=== PATIENT | female | born 1960 | race Caucasian/White ===

== ENCOUNTER → 2019-02-11 | Day surgery (SDC) | payer OTHER ==
[~2019-02-11] MED LIST: ALPRAZOLAM0.25 MG PO; BASAGLAR K100 UNIT/1 SQ; EPHEDRINE SULFATE INJ 50 MG/10 ML SYR ONE; FENTANYL CITRATE/PF 100MCG/2 ML INJ ONE; ISOSORBIDE MONO30 MG PO; LIDOCAINE HCL 2% LOCAL INJ 5 ML SDV VIAL INJ ONE; METOPROLOL TART25 MG PO; PANTOPRAZOLE SO40 MG PO; PIOGLITAZONE HC45 MG PO; PROPOFOL IV EMULSION 10 MG/ML 20 ML VIAL ONE; TOPIRAMATE25 MG PO; ULTRAM50 MG PO
--- OUTSIDE RECORDS SUMMARY | 2019-02-11 09:46 | XMS REPORT | Summary of Care ---
Author Author FERCHO Henriquez, JAZMÍN Organization Unknown Address Unknown Phone Unavailable Care Team Providers Care Career Portals Teacher Name Role Phone JAZMÍN BRANTLEY M.D. 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 * Start : 02-Jun-2017 Active Basaglar KwikPen 100 UNIT/ML Subcutaneous Solution Pen-injector INJECT SUBCUTANEOUSLY DIRECTED. * Refills: 0 * Start : 02-Jun-2017 Active 3 ML Pen Dexilant 60 MG Oral Capsule Delayed Release TAKE 1 CAPSULE DAILY * Refills: 0 * Start : 02-Jun-2017 Active Jardiance 25 MG Oral Tablet TAKE 1 TABLET BY MOUTH ONCE DAILY * Refills: 0 * Start : 02-Jun-2017 Active Lexapro 20 MG Oral Tablet TAKE 1 TABLET DAILY. * Refills: 0 * Start : 02-Jun-2017 Active Tradjenta 5 MG Oral Tablet TAKE 1 TABLET DAILY DIRECTED. * Refills: 0 * Start : 02-Jun-2017 Active Furosemide 20 MG Oral Tablet TAKE 1 TABLET DAILY DIRECTED. * Refills: 0 * Start : 02-Jun-2017 Active Isosorbide Mononitrate ER 60 MG Oral Tablet Extended Release 24 Hour TAKE 1 TABLET ONCE DAILY. * Refills: 0 * Start : 02-Jun-2017 Active Metoprolol Tartrate 25 MG Oral Tablet TAKE 1 TABLET DAILY. * Refills: 0 * Start : 02-Jun-2017 Active Pioglitazone HCl - 30 MG Oral Tablet TAKE 1 TABLET ONCE DAILY. * Refills: 0 * Start : 02-Jun-2017 Active Hydrocodone-Acetaminophen 5-325 MG Oral Tablet 1 tab for 5 days per patient * Refills: 0 * Start : 02-Jun-2017 Active Topiramate 25 MG Oral Tablet TAKE 1 TABLET BEDTIME * Quantity: 30 Refills: 4 FERCHO Henriquez, JAZMÍN * Start : 02-Jun-2017 Active Allergies and Adverse Reactions Name Dates Details codeine (Allergy) Status: Active Procedures Procedure Dates Details Procedures not documented Immunization Name Dates Details Immunizations not documented Social History Name Dates Details Unknown if ever smoked Vital Signs Date Test Result Details No Known Vitals to report Results Date Description Value Details Results not documented Plan of Care Name Dates Details Planned Observations Planned Goals not documented Interventions Provided Medication Changes* Topiramate 25 MG Oral Tablet - Start Labs/Procedures/Imaging* 23hr EEG/Video; To Be Done: 02 Jun 2017 Discussion/Summary* patient is a 56 years old female with PMH of HTN and DM presents to the epilepsy clinic for frequent episodes of seeing flashing lights and concern for possible seizure. Patient reports history of migraine headache without aura or flashing lights before which has stopped few years ago. She denies having any headache with these flashing lights episodes. She denies any history of seizure. * The description of the episodes are not fully consistent with epileptic event and could be a migrainous feature with no headache. We will start on Topamax trial and will follow her clinically. ALso will refer her for 23 hours video EEG monitoring to rule out any possibility of seizure or epileptiform discharges. * - Start on Topamax 25 mg QHS for the goal of 50 mg QHS after 2 weeks. * - 23 hours video EEG * - Follow up with clinic in 6 weeks * Case was discussed with Dr Live. * Jazmín Brantley M.D. * Clinical Neurophysiology Fellow Instructions Name Dates Details Instructions not documented Encounters Appointment; JAZMÍN BRANTLEY M.D. Encounter Diagnosis: Problem not documented On: 02-Jun-2017 15:00
--- OUTSIDE RECORDS SUMMARY | 2019-02-11 09:46 | XMS REPORT ---
Author Author [facility] Address Unknown Phone Unavailable Care Team Providers Care [employer] Name Role Phone Unavailable Unavailable Problems This patient has no known problems. Allergies, Adverse Reactions, Alerts This patient has no known allergies or adverse reactions. Medications This patient has no known medications.
[2019-02-11 13:20] VITALS: BP 95/60
== END | disposition home or self-care (01) ==
LOC: OR 09:45
PROVIDERS: ATTEND Internal Medicine
DX: K29.70 Gastritis, unspecified, without bleeding (principal); K21.9 Gastro-esophageal reflux disease without esophagitis; K44.9 Diaphragmatic hernia without obstruction or gangrene; K85.90 Acute pancreatitis without necrosis or infection, unspecified; C81.90 Hodgkin lymphoma, unspecified, unspecified site; M54.9 Dorsalgia, unspecified; M54.2 Cervicalgia; M79.7 Fibromyalgia; R07.9 Chest pain, unspecified; I10 Essential (primary) hypertension; E78.5 Hyperlipidemia, unspecified; E11.9 Type 2 diabetes mellitus without complications; M06.9 Rheumatoid arthritis, unspecified; Z88.6 Allergy status to analgesic agent; Z88.8 Allergy status to other drugs, medicaments and biological substances; Z79.4 Long term (current) use of insulin; Z79.82 Long term (current) use of aspirin; Z79.84 Long term (current) use of oral hypoglycemic drugs; Z68.31 Body mass index [BMI] 31.0-31.9, adult
CPT/HCPCS: 36415; 43239; 82948; J2001; J2704; J3010